=== PATIENT | female | born 1980 | race Caucasian/White ===

== ENCOUNTER 2019-02-09 09:15 | Emergency (ER) | payer OTHER ==
[~2019-02-09] VITALS: Ht 162.6 cm; Wt 59.0 kg
[2019-02-09] MEDS ORDERED: PREDNISONE 20 M20 MG PO (09:23)
[2019-02-09] MEDS ORDERED: BACTRIM DS TAB1 EACH PO (09:39)
[2019-02-09 09:45] VITALS: BP 115/88
== END 2019-02-09 09:45 | disposition home or self-care (01) ==
LOC: M.ERS 09:15
DX: L03.115 Cellulitis of right lower limb (principal); L03.116 Cellulitis of left lower limb; L03.113 Cellulitis of right upper limb; L03.211 Cellulitis of face; F17.210 Nicotine dependence, cigarettes, uncomplicated